=== PATIENT | male | born 1995 | race Caucasian/White ===

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

== ENCOUNTER → 2017-01-03 | Day surgery (SDC) | payer OTHER ==
[~2017-01-03] MED LIST changes: +HYDROCODON-ACE1 EAC9 PO; +IBUPROFEN800 MG PO; +LEVAQUIN PO; +PHENERGAN PO
--- NOTE | ~2017-01-03 | OR ---
Unit #: [id number] #: [id number] Patient: CATE WADE [id number] [address] [place], [place] [address] [id number] O MR#: [id number] NAME: CATE WADE ROOM: Date of Procedure: 01/03/2017 Admission Date: 01/03/2017 Surgeon: Peter Tolliver M.D. : 1995 Attending Physician: Peter Tolliver M.D. OPERATIVE REPORT PREOPERATIVE DIAGNOSES The patient has come for elective biliary stent removal. He has history of bile leak and had a stent placed since then after laparoscopic cholecystectomy. PROCEDURES PERFORMED Endoscopic retrograde cholangiopancreatography and stent removal. POSTOPERATIVE DIAGNOSES The previously placed biliary stent was removed and a normal occlusion cholangiogram was demonstrated. The previously seen bile leak has completely resolved. The patient is therefore discharged after reassurance. SEDATION USED MAC. DESCRIPTION OF PROCEDURE Following detailed explanation of the potential risks and complications of an ERCP namely perforation, bleeding, complication related to sedation, and pancreatitis, the patient was brought to GI lab and laid in the left semiprone position. Sedation using MAC was given. The lateral viewing duodenoscope was advanced through the oral cavity into the esophagus and advanced into the stomach. Pylorus was intubated in the usual fashion and the scope was advanced past the pyloric channel into the deep descending duodenum. Upon shortening the scope, major papilla and ampullary area was visualized en face. The previously placed biliary stent was seen in normal position. It was removed using a polypectomy snare and delivered outside. The patient was then reintubated and through the previous sphincterotomy site, a sphincterotome and guidewire were advanced easily. The common bile duct appeared normal at about 7 mm. The duct was then swept with a 9 to 12 mm retrieval balloon 3 to 4 times, obtaining an occlusion cholangiogram which showed no residual bile leak. The cholangiogram being normal. The scope and the accessories were then withdrawn and the patient returned to the recovery area. He tolerated the procedure without any postprocedure complications. Dictated by... Marychuy Stone/vin Unit #: [id number] #: [id number] Patient: CATE WADE TD: 01/03/2017 16:47 JOB #: [id number] CC: Fernandez Deal M.D. OPERATIVE REPORT Page 1 of 1 X Peter Tolliver MD PROCEDURE OPERATIVE NOTE
--- NOTE | ~2017-01-03 | CR84 ---
[facility] A Service of [facility] RADIOLOGY TEXT RESULTS PATIENT: CATE WADE LOCATION: [facility] : 97 UNIT #: [id number] AGE: [address]: Peter Tolliver MD SEX: M ORDER DR: [id number] [facility]. [place], [place] [address] [id number] O MR#: [id number] Acc #: [id number] NAME: CATE WADE. : 1995 SEX: M STUDY DATE/TIME: 01/03/2017 13:46 UNIT: [facility] ROOM: STUDY DESCRIPTION: CR ERCP Biliary and Pancr SI Attending Physician: Peter Tolliver M.D. Ordering Physician: Peter Tolliver M.D. Primary Care Physician: Primary Care Physician No MEDICAL IMAGING REPORT This report is preliminary unless electronic signature is present EXAM ERCP with fluoroscopy. DATE 01/03/2017 HISTORY 21-year-old male with history of bile leak. COMPARISON ERCP 09/11/2016. FINDINGS Six spot fluoroscopic images were obtained during ERCP procedure performed by Dr. Tolliver. Six fluoroscopic images were obtained. 52 seconds fluoroscopy time was documented. Cholecystectomy clips in place. Contrast was injected into the common bile duct. There is no suspicious filling defect within the CBD, and there is no evidence of high-grade stricture. The CBD caliber appears just at upper-limits normal. Downstream intrahepatic bile ducts appear unremarkable. No contrast extravasation is seen and no evidence of residual or recurrent bile leak. Pancreatic duct was not sought. Please refer to the procedure report for additional findings and recommendations. Dictated by... Anna Duvall M.D. THIS IS AN ELECTRONICALLY VERIFIED REPORT Anna Duvall M.D. at 01/04/2017 10:03 AM [facility] A Service of [facility] RADIOLOGY TEXT RESULTS PATIENT: CATE WADE LOCATION: [facility] : [birth year] UNIT #: [id number] AGE: [address]: Peter Tolliver MD SEX: M ORDER DR: TD: 01/03/2017 22:52 JOB #: [id number] MEDICAL IMAGING REPORT Page 1 of 1 COPY
== END | disposition home or self-care (01) ==
LOC: COPS 11:30
DX: Z46.59 Encounter for fitting and adjustment of other gastrointestinal appliance and device (principal); F17.210 Nicotine dependence, cigarettes, uncomplicated; Z88.8 Allergy status to other drugs, medicaments and biological substances; Z90.49 Acquired absence of other specified parts of digestive tract; Z98.890 Other specified postprocedural states
CPT/HCPCS: 74330; J2250